=== PATIENT | male | born 1980 | race African-American/Black ===

== ENCOUNTER 2021-01-05 15:28 | Emergency (ER) | payer SELFPAY ==
[~2021-01-05] VITALS: Ht 180.3 cm; Wt 97.1 kg
[2021-01-05 16:35] VITALS: BP 144/111
[2021-01-05] MEDS ORDERED: AMOX-430 PO ×2 (17:46→18:49)
== END 2021-01-05 18:00 | disposition home or self-care (01) ==
LOC: ER 15:38
DX: R07.89 Other chest pain (principal); R05 Cough; Z79.899 Other long term (current) drug therapy
CPT/HCPCS: 71045-TC